=== PATIENT | male | born 1955 | race African-American/Black ===

== ENCOUNTER 2019-01-14 04:11 | Emergency (ER) | payer OTHER, MEDICARE ==
[~2019-01-14] VITALS: Ht 175.3 cm; Wt 59.0 kg
[2019-01-14 04:33] VITALS: BP 95/61
--- NOTE | 2019-01-14 04:43 | NUR ---
ED Nurse Note: Patient was BIB his daughter due to fall. Per daugter she found him in the bathroom. Patient states that had 2 bottle of vodka today, Presented with strong smell of alcohol. AAO x1, VSS at thios time. Patient presented with lacerations on back of his head.
--- NOTE | 2019-01-14 04:54 | Emergency Room Report ---
History of Present Illness General Chief Complaint: Multiple Trauma/Fall Source: Patient (Clay Barron MD) Present Illness HPI 63-year-old male presents ED for evaluation. Brought in by EMS. Status post fall in bathroom tonight. Head injury. Daughter called 911. Fall was unwitnessed. EMS states that they were multiple beer bottles next to the patient. Daughter states patient has history of alcohol abuse. Per EMS patient was answering questions appropriately. Tetanus unknown. Patient denies any pain. Denies any other injuries. No other aggravating relieving factors. Denies any other associated symptoms (Clay Barron MD) Allergies: Coded Allergies: No Known Allergies (Unverified , 01/14/19) Patient History Past Medical History: DM Past Surgical History: none Pertinent Family History: none Social History: Reports: alcohol use; Denies: smoking, drug use Immunizations: UTD Reviewed Nursing Documentation: PMH: Agreed; PSxH: Agreed (Clay Barron MD) Nursing Documentation-PMH Hx Diabetes: Yes (Clay Barron MD) Review of Systems All Other Systems: negative except mentioned in HPI (Clay Barron MD) Physical Exam Vital Signs Date Time Temp Pulse Resp B/P (MAP) Pulse Ox O2 Delivery O2 Flow Rate FiO2 01/14/19 04:16 98.4 83 15 95/61 (72) 100 Room Air Sp02 EP Interpretation: reviewed, normal General Appearance: no apparent distress, GCS 15, non-toxic, other - intoxicated Head: normocephalic, other - 5cm posterior scalp laceration Eyes: bilateral eye normal inspection, bilateral eye PERRL ENT: hearing grossly normal, normal pharynx, no angioedema, normal voice Neck: full range of motion, supple/symm/no masses Respiratory: chest non-tender, lungs clear, normal breath sounds, speaking full sentences Cardiovascular #1: regular rate, rhythm, no edema Cardiovascular #2: 2+ carotid (R), 2+ carotid (L), 2+ radial (R), 2+ radial (L) , 2+ dorsalis pedis (R), 2+ dorsalis pedis (L) Gastrointestinal: normal bowel sounds, non tender, soft, non-distended, no guarding, no rebound Rectal: deferred Genitourinary: normal inspection, no CVA tenderness Musculoskeletal: back normal, gait/station normal, normal range of motion, non- tender Neurologic: other - intoxicated Psychiatric: other - intoxicated Reflexes: 3+ bicep (R), 3+ bicep (L), 3+ tricep (R), 3+ tricep (L), 3+ knee (R) , 3+ knee (L) Skin: no rash Lymphatic: no adenopathy (Clay Barron MD) Medical Decision Making Last Vital Signs Date Time Temp Pulse Resp B/P (MAP) Pulse Ox O2 Delivery O2 Flow Rate FiO2 01/14/19 04:16 98.4 83 15 95/61 (72) 100 Room Air (Clay Barron MD) Reevaluation Time: 10:06 Reevaluation Impression Assumed care of the patient approximately [address] Barron. Briefly, this is a 63-year-old male who had a fall while intoxicated sustaining several lacerations to the scalp which were closed with sutures. Labs and CT were unremarkable. The patient was allowed to metabolize in the emergency department and is now clinically sober. He states he had a fall from standing and this was not attempted self-harm and has no self-harm ideation. He states this was simply a accident and will follow up with his PMD at [facility] as soon as possible. Patient is stable and appropriate for outpatient follow-up. We discussed reasons to return to the emergency department. He understands and agrees with treatment plan was discharged (Warren Scruggs MD) Disposition: HOME, SELF-CARE Condition: Improved Scripts Unable to Obtain Active Prescriptions or Reported Meds Clay Barron MD Jan 14, 2019 04:54 Warren Scruggs MD Jan 14, 2019 10:07
[2019-01-14 05:05] LABS: BASOPHILS % (AUTO) 0.7 % (0.0-2.0); EOSINOPHILS % (AUTO) 0.7 % (0.0-3.0); HEMATOCRIT 32.9 % (42.0-52.0); HEMOGLOBIN 9.9 G/DL (14.2-18.0); LYMPHOCYTES % (AUTO) 24.6 % (20.0-45.0); MEAN CORPUSCULAR VOLUME 80 FL (80-99); MONOCYTES % (AUTO) 5.2 % (1.0-10.0); NEUTROPHILS % (AUTO) 68.8 % (45.0-75.0); PLATELET COUNT 224 K/UL (150-450); RED BLOOD COUNT 4.11 M/UL (4.70-6.10); RED CELL DISTRIBUTION WIDTH 13.5 % (11.6-14.8); WHITE BLOOD COUNT 5.5 K/UL (4.8-10.8)
[2019-01-14 05:06] LABS: ANION GAP 9 mmol/L (5-15); BLOOD UREA NITROGEN 24 mg/dL (7-18); CALCIUM 9.3 MG/DL (8.5-10.1); CARBON DIOXIDE 22 MMOL/L (21-32); CHLORIDE 111 MMOL/L (98-107); CREATININE 1.4 MG/DL (0.55-1.30); POTASSIUM 4.4 MMOL/L (3.5-5.1); SODIUM 142 MMOL/L (136-145)
[2019-01-14 05:10] LABS: ALANINE AMINOTRANSFERASE 25 U/L (12-78); ALBUMIN 3.4 G/DL (3.4-5.0); ALKALINE PHOSPHATASE 76 U/L (46-116); ASPARTATE AMINO TRANSFERASE 17 U/L (15-37); BILIRUBIN,TOTAL 0.1 MG/DL (0.2-1.0)
[2019-01-14] MEDS ORDERED: Bacitracin Oint UD TOPIC ONE (05:45)
--- NOTE | 2019-01-14 05:49 | Diagnostic Imaging Report ---
EXAM: CT Head Without Intravenous Contrast CLINICAL HISTORY: AMS TECHNIQUE: Axial computed tomography images of the head brain without intravenous contrast. CTDI is 74 mGy and DLP is 1757 mGy-cm. One or more of the following dose reduction techniques were used: automated exposure control, adjustment of the mA and or kV according to patient size, use of iterative reconstruction technique. COMPARISON: No relevant prior studies available. FINDINGS: Brain: Unremarkable. No hemorrhage. No significant white matter disease. No edema. Ventricles: Unremarkable. No ventriculomegaly. Bones joints: Unremarkable. No acute fracture. Soft tissues: Unremarkable. Sinuses: Unremarkable as visualized. No acute sinusitis. Mastoid air cells: Unremarkable as visualized. No mastoid effusion. IMPRESSION: No evidence of acute intracranial abnormality.
--- NOTE | 2019-01-14 06:30 | NUR ---
ED Nurse Note: Recieved report from mary esposito to resume care, pt in bed resting quietly, awake and alert, on cardiac monitopring, has patent IV site in right arm with fluuids infusing, pt does not have urine at this time, will resume care as ordered and continue to closely monitor and prepare for discharge when pt is sober and safe to be discharged.
[2019-01-14 07:10] VITALS: BP 118/76
--- NOTE | 2019-01-14 07:41 | NUR ---
ED Nurse Note: Pt sleeping on bed with no distress. IVF fluids running. On ict account manager with fall precautions implemented: side rails up with bed locked in lowest position.
--- NOTE | 2019-01-14 08:45 | NUR ---
ED Nurse Note: Provided with iced water. No acute distress. Still waiting to sober.
--- NOTE | 2019-01-14 09:20 | NUR ---
ED Nurse Note: Pt is more awake and alert at this time. More water to drink provided. Dr Scruggs notified.
--- NOTE | 2019-01-14 09:35 | NUR ---
ED Nurse Note: Pt ambulated with steady gait at this time. AAO x4 and follows commands. Notified Dr cheung.
[2019-01-14 10:07] VITALS: BP 113/70
--- NOTE | 2019-01-14 10:07 | NUR ---
ER DISCHARGE NOTE: Patient is cleared to be discharged per ERMD, pt is aox4, on room air, with stable vital signs. pt was given dc instructions, pt was able to verbalize understanding, pt id band and iv site removed without complications. pt is able to ambulate with steady gait. pt took all belongings.
== END 2019-01-14 10:07 | disposition home or self-care (01) ==
LOC: EDBD 04:11 → EMR 05:06
DX: S09.90XA Unspecified injury of head, initial encounter (principal); S01.01XA Laceration without foreign body of scalp, initial encounter; W19.XXXA Unspecified fall, initial encounter; Y92.9 Unspecified place or not applicable; E11.9 Type 2 diabetes mellitus without complications
CPT/HCPCS: 12002; 36415; 70450; 80053; 85025; 96360; 99284; G0480; J7030

== ENCOUNTER 2019-07-14 11:06 | Emergency (ER) | payer OTHER, MEDICARE, MEDICAID ==
[~2019-07-14] VITALS: Ht 170.2 cm; Wt 63.5 kg
--- NOTE | 2019-07-14 11:06 | NUR ---
ED Nurse Note: Initial accucheck 45mg/dl; Dr. Barron at bedside.
--- NOTE | 2019-07-14 11:10 | NUR ---
ED Nurse Note: Pt was brought in by ambulance d/t hypotension and hypoglycemia. Pt is AOx4, calm and cooperative noted with contraction on upper bilateral extremities and generalized body weakness. Per pt, he's also having some diarrhea going for 'a long time' already. Placed on bed and gown; hooked to box packer. VSS, on RA, afebrile on triage. Pt arrived with a patent IV established by EMS on RT AC with 18G. Safety measures met; offered warm blankets, will continue to monitor.
[2019-07-14 11:35] VITALS: BP 95/56
[2019-07-14] MEDS ORDERED: INSULIN CHARG5 UNITS SUBQ (11:38)
--- NOTE | 2019-07-14 11:48 | Emergency Room Report ---
History of Present Illness General Chief Complaint: Abnormal Labs Source: Patient, EMS Present Illness HPI 64-year-old male presents the ED for evaluation of hypoglycemia. Accu-Chek per EMS today was in the 30s. Given glucose. States he is a diabetic and takes insulin. Patient also noted to be hypotensive. Systolic in the 90s. Given IV fluids per EMS. BP improved on arrival. Patient states he has been having diarrhea for the last few days. Denies fevers or chills. Denies cough or congestion. Denies abdominal pain. Denies sick contacts or recent travel. No other aggravating relieving factors. Denies any other associated symptoms Allergies: Coded Allergies: No Known Allergies (Unverified , 01/14/19) COVID-19 Screening Contact w/high risk pt: No Recent Travel to affected area: No Experienced COVID-19 symptoms?: No Patient History Past Medical History: DM Past Surgical History: none Pertinent Family History: none Social History: Denies: smoking, alcohol use, drug use Immunizations: UTD Reviewed Nursing Documentation: PMH: Agreed; PSxH: Agreed Nursing Documentation-PMH Past Medical History: No Stated History Hx Diabetes: Yes Review of Systems All Other Systems: negative except mentioned in HPI Physical Exam Vital Signs Date Time Temp Pulse Resp B/P (MAP) Pulse Ox O2 Delivery O2 Flow Rate FiO2 07/14/19 10:57 89 20 95/56 (69) 100 Room Air Sp02 EP Interpretation: reviewed, normal General Appearance: no apparent distress, alert, GCS 15, non-toxic Head: normocephalic, atraumatic Eyes: bilateral eye normal inspection, bilateral eye PERRL ENT: hearing grossly normal, normal pharynx, no angioedema, normal voice Neck: full range of motion, supple/symm/no masses Respiratory: chest non-tender, lungs clear, normal breath sounds, speaking full sentences Cardiovascular #1: regular rate, rhythm, no edema Cardiovascular #2: 2+ carotid (R), 2+ carotid (L), 2+ radial (R), 2+ radial (L) , 2+ dorsalis pedis (R), 2+ dorsalis pedis (L) Gastrointestinal: normal bowel sounds, non tender, soft, non-distended, no guarding, no rebound Rectal: deferred Genitourinary: normal inspection, no CVA tenderness Musculoskeletal: back normal, normal range of motion, gait/station normal, non- tender Neurologic: alert, motor strength/tone normal, oriented x3, sensory intact, responsive, speech normal Psychiatric: judgement/insight normal, memory normal, mood/affect normal, no suicidal/homicidal ideation Reflexes: 3+ bicep (R), 3+ bicep (L), 3+ tricep (R), 3+ tricep (L), 3+ knee (R) , 3+ knee (L) Lymphatic: no adenopathy Procedures Critical Care Time Critical Care Time i. I feel this is a highly complex case requiring extensive working including EKG/Rhythm strip, Xray/CT/US, Blood/urine lab work, repeat exams while in ED, and administration of strong opiates/narcotics for pain control, admission to hospital or close patient follow up. Total time: 45 min bedside evaluation and treatment excludes procedures (EKG). Reason for critical care: hypoglycemia, hypotension Possible complications: hypotension, hypertension, CT, shock, arrhythmias, metabolic acidosis, end organ damage, respiratory failure. Interventions: labs, IVFs, guiac, D50, D5W, Cipro Course: Patient presenting with hypoglycemia, vomiting and diarrhea. Accu-Chek in the 40s. Given D50. Started on D5W. Creatinine elevated. Hemoglobin 7.9. Guaiac negative. Given antibiotics. BP improved after IV fluids. Consultations: nursing staff, EMS, family Performed by: Dr Barron Tolerated well condition = serious j. because of unstable vital signs this patient had a condition that could potentially threaten life or limb. I feel this is a critical patient who required my full attention while patient was considered critical. Total Critical Care Time excluding procedures was greater than 45 minutes Medical Decision Making Diagnostic Impression: Primary Impression: Hypoglycemia Additional Impressions: Colitis Anemia Qualified Codes: D64.9 - Anemia, unspecified ER Course Hospital Course 64-year-old female presenting to ED with generalized weakness, diarrhea, low FS in field Differential diagnoses include: dehyration, sepsis, hypoglycemia Clinical course Patient placed on stretcher. On technical buyer. Accu-Chek in the 40s. After initial history and physical I ordered labs, CXR, D50, and D5w Labs-glucose 47, Cr 1.8, WBC 12.5, Hb 7.9 CXR - no acute process, no ground glass opacities Guiac negative. BP improved after IV fluids. Started on D5W. Given antibiotics. because of insurance patient will be transferred to [facility]. I feel this is a highly complex case requiring extensive working including EKG/Rhythm strip, Xray/CT/US, Blood/urine lab work, repeat exams while in ED, and administration of strong opiates/narcotics for pain control, admission to hospital or close patient follow up. diagnosis - hypoglycemia, colitis, anemia transferred in serious condition Labs Test 07/14/19 11:20 07/14/19 11:40 White Blood Count 12.5 K/UL (4.8-10.8) Red Blood Count 3.42 M/UL (4.70-6.10) Hemoglobin 7.9 G/DL (14.2-18.0) Hematocrit 26.0 % (42.0-52.0) Mean Corpuscular Volume 76 FL (80-99) Mean Corpuscular Hemoglobin 23.2 PG (27.0-31.0) Mean Corpuscular Hemoglobin Concent 30.6 G/DL (32.0-36.0) Red Cell Distribution Width 11.9 % (11.6-14.8) Platelet Count 300 K/UL (150-450) Mean Platelet Volume 6.9 FL (6.5-10.1) Neutrophils (%) (Auto) % (45.0-75.0) Lymphocytes (%) (Auto) % (20.0-45.0) Monocytes (%) (Auto) % (1.0-10.0) Eosinophils (%) (Auto) % (0.0-3.0) Basophils (%) (Auto) % (0.0-2.0) Differential Total Cells Counted 100 Neutrophils % (Manual) 85 % (45-75) Lymphocytes % (Manual) 13 % (20-45) Monocytes % (Manual) 2 % (1-10) Eosinophils % (Manual) 0 % (0-3) Basophils % (Manual) 0 % (0-2) Band Neutrophils 0 % (0-8) Platelet Estimate Adequate Platelet Morphology Normal Hypochromasia 3+ Anisocytosis 1+ Microcytosis 1+ Sodium Level 134 MMOL/L (136-145) Potassium Level 5.2 MMOL/L (3.5-5.1) Chloride Level 102 MMOL/L (98-107) Carbon Dioxide Level 18 MMOL/L (21-32) Anion Gap 14 mmol/L (5-15) Blood Urea Nitrogen 28 mg/dL (7-18) Creatinine 1.8 MG/DL (0.55-1.30) Estimat Glomerular Filtration Rate 46.2 mL/min (>60) Glucose Level 47 MG/DL (74-106) Calcium Level 10.2 MG/DL (8.5-10.1) Total Bilirubin 0.5 MG/DL (0.2-1.0) Aspartate Amino Transf (AST/SGOT) 35 U/L (15-37) Alanine Aminotransferase (ALT/SGPT) 25 U/L (12-78) Alkaline Phosphatase 118 U/L (46-116) Total Protein 7.9 G/DL (6.4-8.2) Albumin 2.9 G/DL (3.4-5.0) Globulin 5.0 g/dL Albumin/Globulin Ratio 0.6 (1.0-2.7) Lipase 181 U/L (73-393) Urine Color Pale yellow Urine Appearance Clear Urine pH 5 (4.5-8.0) Urine Specific [place] 1.015 (1.005-1.035) Urine Protein 2+ (NEGATIVE) Urine Glucose (UA) Negative (NEGATIVE) Urine Ketones Negative (NEGATIVE) Urine Blood 1+ (NEGATIVE) Urine Nitrite Negative (NEGATIVE) Urine Bilirubin Negative (NEGATIVE) Urine Urobilinogen Normal MG/DL (0.0-1.0) Urine Leukocyte Esterase Negative (NEGATIVE) Urine RBC 2-4 /HPF (0 - 0) Urine WBC 0-2 /HPF (0 - 0) Urine Squamous Epithelial Cells Few /LPF (NONE/OCC) Urine Bacteria Occasional /HPF (NONE) Chest X-Ray Diagnostic Results Chest X-Ray Diagnostic Results : Chest X-Ray Ordered: Yes # of Views/Limited/Complete: 1 View Indication: Other EP Interpretation: Yes Interpretation: no consolidation, no effusion, no pneumothorax, no acute cardiopulmonary disease Impression: No acute disease Electronically Signed by: Electronically signed by Clay Barron MD Last Vital Signs Date Time Temp Pulse Resp B/P (MAP) Pulse Ox O2 Delivery O2 Flow Rate FiO2 07/14/19 11:35 20 95/56 100 Room Air 07/14/19 10:57 89 Status: improved Disposition: HOME, SELF-CARE Condition: Stable Clay Barron MD Jul 14, 2019 11:48
[2019-07-14 11:53] LABS: HEMOGLOBIN 7.9 G/DL (14.2-18.0); MEAN CORPUSCULAR VOLUME 76 FL (80-99); PLATELET COUNT 300 K/UL (150-450); RED BLOOD COUNT 3.42 M/UL (4.70-6.10); RED CELL DISTRIBUTION WIDTH 11.9 % (11.6-14.8); WHITE BLOOD COUNT 12.5 K/UL (4.8-10.8)
--- NOTE | 2019-07-14 11:57 | Diagnostic Imaging Report ---
EXAM: XR Chest, 1 View CLINICAL HISTORY: ABD PAIN TECHNIQUE: Frontal view of the chest. COMPARISON: No relevant prior studies available. FINDINGS: Lungs: Unremarkable. No consolidation. Pleural space: Unremarkable. No pneumothorax. Heart: Unremarkable. No cardiomegaly. Mediastinum: Calcified aorta. Bones/joints: Chronic right distal clavicle deformity. Degeneration of both acromioclavicular joints. IMPRESSION: No evidence of acute pulmonary disease
[2019-07-14 12:03] LABS: APPEARANCE,URINE CLEAR; BILIRUBIN, URINE NEGATIVE (NEGATIVE); COLOR,URINE PALE YELLOW; GLUCOSE, URINE (UA) NEGATIVE (NEGATIVE); KETONES,URINE NEGATIVE (NEGATIVE); LEUKOCYTE ESTERASE ,URINE NEGATIVE (NEGATIVE); NITRITE,URINE NEGATIVE (NEGATIVE); PH,URINE 5 (4.5-8.0); PROTEIN,URINE 2+ (NEGATIVE); UROBILINOGEN,URINE NORMAL MG/DL (0.0-1.0)
[2019-07-14 12:05] LABS: ANION GAP 14 mmol/L (5-15); BLOOD UREA NITROGEN 28 mg/dL (7-18); CALCIUM 10.2 MG/DL (8.5-10.1); CARBON DIOXIDE 18 MMOL/L (21-32); CHLORIDE 102 MMOL/L (98-107); CREATININE 1.8 MG/DL (0.55-1.30); POTASSIUM 5.2 MMOL/L (3.5-5.1); SODIUM 134 MMOL/L (136-145)
[2019-07-14 12:09] LABS: ALANINE AMINOTRANSFERASE 25 U/L (12-78); ALBUMIN 2.9 G/DL (3.4-5.0); ALBUMIN/GLOBULIN RATIO 0.6 (1.0-2.7); ALKALINE PHOSPHATASE 118 U/L (46-116); ASPARTATE AMINO TRANSFERASE 35 U/L (15-37); BILIRUBIN,TOTAL 0.5 MG/DL (0.2-1.0)
--- NOTE | 2019-07-14 12:50 | NUR ---
ED Nurse Note: Offered sandwich and apple juice to pt; consumed well.
[2019-07-14 13:18] VITALS: BP 172/101
--- NOTE | 2019-07-14 14:50 | NUR ---
ED Nurse Note: Pt is on bed, awake and alert; VSS, on RA. Pt denies any pain nor discomfort right now. Kept lights off as requested. Will continue to monitor.
[2019-07-14 15:08] VITALS: BP 102/71
--- NOTE | 2019-07-14 15:20 | NUR ---
ED Nurse Note: Latest accucheck: 144mg/dl
[2019-07-14 15:30] VITALS: BP 102/71
--- NOTE | 2019-07-14 15:30 | NUR ---
ED Nurse Note: Pt was transferred to [facility] for continuity of care. Pt was picked up by [facility], report for hand-off given to TALITA Harrell in [place]. All belongings was sent to pt. Family was aware of transfer. Pt left ED on stable condition.
== END 2019-07-14 15:30 | disposition home or self-care (01) ==
LOC: EDBD 11:06 → EMR 11:20
DX: E11.649 Type 2 diabetes mellitus with hypoglycemia without coma (principal); K52.9 Noninfective gastroenteritis and colitis, unspecified; D64.9 Anemia, unspecified; R19.7 Diarrhea, unspecified
CPT/HCPCS: 36415; 71045; 80053; 81003; 83690; 85007; 85025; 96365; 96366; 96367; 96375; 99291; J0744; J2405; J7070; S0028